=== PATIENT | female | born 1950 | race Caucasian/White ===

== ENCOUNTER 2021-10-11 22:23 | Inpatient (IN) ==
[2021-10-12] MEDS ORDERED: Naloxone 0.4 MG/ML INJ IVP PRN (04:48)
[2021-10-12] MEDS ORDERED: *HR* Heparin 5,000 UNIT/ML VIAL IVP PRN (05:18)
[2021-10-12 05:39] LABS: Hematocrit 37.3 % (35.3-44.9); Mean Corpuscular HGB Conc 29.5 g/dL (31.6-35.5); Mean Corpuscular Hemoglobin 25.5 pg (28.0-33.3); Mean Corpuscular Volume 86.5 fL (83.0-100.0); Red Blood Count 4.31 M/mcL (3.82-4.97); Red Cell Distribution Width 15.5 % (11.5-14.5); White Blood Count 5.1 K/mcL (4.3-11.1)
[2021-10-12] MEDS: Heparin 25,000UNIT/250ML 1/2NS 25,000 UNIT/250 ML IV.SOLN IVC SCH (05:39)
[2021-10-12 05:47] LABS: Heparin anti-factor XA UFH 0.18 IU/mL (0.30-0.70); INR 1.2; Prothrombin Time 13.5 Seconds (9.4-12.1)
[2021-10-12] MEDS: *HR* Heparin 5,000 UNIT/ML VIAL IVP PRN ×2 (06:09→13:57)
[2021-10-12 06:15] LABS: BUN/Creatinine Ratio 25 (6-26); Blood Urea Nitrogen 15 mg/dL (8-23); Calcium 8.7 mg/dL (8.6-10.3); Carbon Dioxide 22 mEq/L (23-29); Chloride 104 mEq/L (98-107); Glucose 105 mg/dL (70-105); Osmolality,Calculated 279 (280-300); Potassium 3.6 mEq/L (3.5-5.1); Sodium 134 mEq/L (136-145); Troponin I < 0.03 ng/mL (< 0.04); eGFR For African Americans > 60 (> 60); eGFR For Non-African Americans > 60 (> 60)
[2021-10-12] MEDS: Pantoprazole 40 MG VIAL IVP SCH ×2 (07:35→17:38)
[2021-10-12 16:33] LABS: Mean Platelet Volume 10.6 fL (9.4-12.4)
[2021-10-12 16:44] LABS: INR 1.2; Prothrombin Time 13.9 Seconds (9.4-12.1)
[2021-10-12 16:54] LABS: Albumin 3.6 g/dL (3.5-5.7); Albumin/Globulin Ratio 1.1 (1.1-2.2); Bilirubin,Direct 0.2 mg/dL (0.0-0.2); Bilirubin,Total 1.2 mg/dL (0.3-1.0); Globulin 3.3 g/dL (2.4-3.5); Total Protein 6.9 g/dL (6.4-8.9)
[2021-10-12 17:01] LABS: INR 1.3; Prothrombin Time 14.4 Seconds (9.4-12.1)
[2021-10-12] MEDS ORDERED: *HR* Warfarin 5 MG TABLET PO ONE (18:00)
[2021-10-12] MEDS ORDERED: Warfarin perPT PO PRN (18:00)
[2021-10-12 18:09] LABS: Folate 16.9 ng/mL (3.0-16.0)
[2021-10-12 18:10] LABS: Vitamin B12 155 pg/mL (250-1100)
[2021-10-12 19:16] LABS: Hepatitis B Surface Antigen Nonreactive (Nonreactive)
[2021-10-12 19:45] LABS: Hepatitis B Core IgM Nonreactive (Nonreactive); Hepatitis C Virus Antibody Nonreactive (Nonreactive)
[2021-10-12 19:47] LABS: Hepatitis A Antibody IgM Nonreactive (Nonreactive)
[2021-10-12] MEDS ORDERED: Iron Sucrose Complex 400 MG in 0.9 % Sodium Chloride 250 ML IVPB ONE (20:45)
[2021-10-12] MEDS ORDERED: Cyanocobalamin (B-12) 1,000 MCG/ML VIAL SQ SCH (20:45)
[2021-10-12] MEDS: Cyanocobalamin (B-12) 1,000 MCG TABLET PO SCH (21:35)
[2021-10-13] MEDS: Melatonin 3 MG TABLET PO PRN (01:15)
[2021-10-13] MEDS: Acetaminophen 325 MG TABLET PO PRN (01:15)
[2021-10-13] MEDS: Heparin 25,000UNIT/250ML 1/2NS 25,000 UNIT/250 ML IV.SOLN IVC SCH (01:56)
[2021-10-13] MEDS: Pantoprazole 40 MG VIAL IVP SCH (04:46)
[2021-10-13 05:16] LABS: Hematocrit 31.5 % (35.3-44.9); Hemoglobin 9.8 g/dL (11.5-15.4); Mean Corpuscular HGB Conc 31.1 g/dL (31.6-35.5); Mean Corpuscular Hemoglobin 25.4 pg (28.0-33.3); Mean Corpuscular Volume 81.6 fL (83.0-100.0); Mean Platelet Volume 10.6 fL (9.4-12.4); Platelet Count 242 K/mcL (140-400); Red Blood Count 3.86 M/mcL (3.82-4.97); Red Cell Distribution Width 15.4 % (11.5-14.5); White Blood Count 5.9 K/mcL (4.3-11.1)
[2021-10-13 05:22] LABS: INR 1.3; Prothrombin Time 14.1 Seconds (9.4-12.1)
[2021-10-13 05:36] LABS: Alanine Aminotransferase 3 Units/L (7-52); Albumin 3.1 g/dL (3.5-5.7); Albumin/Globulin Ratio 1.1 (1.1-2.2); Alkaline Phosphatase 56 Units/L (34-104); Aspartate Amino Transferase 9 Units/L (13-39); BUN/Creatinine Ratio 17 (6-26); Blood Urea Nitrogen 11 mg/dL (8-23); Calcium 8.5 mg/dL (8.6-10.3); Carbon Dioxide 23 mEq/L (23-29); Chloride 105 mEq/L (98-107); Globulin 2.7 g/dL (2.4-3.5); Glucose 112 mg/dL (70-105); Osmolality,Calculated 282 (280-300); Potassium 3.2 mEq/L (3.5-5.1); Sodium 136 mEq/L (136-145); Total Protein 5.8 g/dL (6.4-8.9); eGFR For African Americans > 60 (> 60); eGFR For Non-African Americans > 60 (> 60)
[2021-10-13 05:38] LABS: Estimated Average Glucose 126 mg/dl
[2021-10-13] MEDS: Cyanocobalamin (B-12) 1,000 MCG TABLET PO SCH (08:51)
[2021-10-13] MEDS: *HR* Enoxaparin 80 MG/0.8 ML SYRINGE SQ SCH ×2 (12:21→20:53)
[2021-10-13] MEDS: Cyanocobalamin (B-12) 1,000 MCG/ML VIAL SQ SCH (12:22)
[2021-10-13 12:36] LABS: Triiodothyronine (T3) Free 2.54 pg/mL (2.50-3.90)
[2021-10-13] MEDS ORDERED: *HR* Warfarin 2.5 MG TABLET PO ONE (18:00)
[2021-10-14 05:31] LABS: INR 1.6; Prothrombin Time 18.1 Seconds (9.4-12.1)
[2021-10-14 05:37] LABS: Hematocrit 30.1 % (35.3-44.9); Hemoglobin 9.6 g/dL (11.5-15.4); Mean Corpuscular HGB Conc 31.9 g/dL (31.6-35.5); Mean Corpuscular Hemoglobin 25.8 pg (28.0-33.3); Mean Corpuscular Volume 80.9 fL (83.0-100.0); Mean Platelet Volume 10.7 fL (9.4-12.4); Platelet Count 278 K/mcL (140-400); Red Blood Count 3.72 M/mcL (3.82-4.97); Red Cell Distribution Width 15.2 % (11.5-14.5); White Blood Count 5.3 K/mcL (4.3-11.1)
[2021-10-14 05:57] LABS: Alanine Aminotransferase 4 Units/L (7-52); Albumin 3.1 g/dL (3.5-5.7); Alkaline Phosphatase 55 Units/L (34-104); Aspartate Amino Transferase 8 Units/L (13-39); BUN/Creatinine Ratio 13 (6-26); Bilirubin,Total 0.7 mg/dL (0.3-1.0); Blood Urea Nitrogen 8 mg/dL (8-23); Calcium 8.7 mg/dL (8.6-10.3); Carbon Dioxide 21 mEq/L (23-29); Chloride 103 mEq/L (98-107); Glucose 97 mg/dL (70-105); Osmolality,Calculated 276 (280-300); Potassium 3.8 mEq/L (3.5-5.1); Sodium 134 mEq/L (136-145); Total Protein 6.1 g/dL (6.4-8.9); eGFR For African Americans > 60 (> 60); eGFR For Non-African Americans > 60 (> 60)
[2021-10-14] MEDS: Cyanocobalamin (B-12) 1,000 MCG/ML VIAL SQ SCH (09:02)
[2021-10-14] MEDS: *HR* Enoxaparin 80 MG/0.8 ML SYRINGE SQ SCH ×2 (09:03→20:31)
[2021-10-14] MEDS: Acetaminophen 325 MG TABLET PO PRN (15:31)
[2021-10-14] MEDS ORDERED: *HR* Warfarin 2.5 MG TABLET PO ONE (18:00)
[2021-10-15 05:19] LABS: INR 1.6; Prothrombin Time 18.2 Seconds (9.4-12.1)
[2021-10-15] MEDS: Acetaminophen 325 MG TABLET PO PRN (07:59)
[2021-10-15] MEDS: *HR* Enoxaparin 80 MG/0.8 ML SYRINGE SQ SCH ×2 (07:59→20:38)
[2021-10-15] MEDS: Cyanocobalamin (B-12) 1,000 MCG/ML VIAL SQ SCH (08:04)
[2021-10-15] MEDS: Sennosides/Docusate Sodium TABLET PO SCH ×2 (10:55→20:37)
[2021-10-15] MEDS ORDERED: *HR* Warfarin 4 MG TABLET PO ONE (18:00)
[2021-10-16 02:47] LABS: INR 1.8; Prothrombin Time 19.6 Seconds (9.4-12.1)
[2021-10-16] MEDS: Sennosides/Docusate Sodium TABLET PO SCH ×2 (10:13→21:35)
[2021-10-16] MEDS: Cyanocobalamin (B-12) 1,000 MCG/ML VIAL SQ SCH (10:14)
[2021-10-16] MEDS: *HR* Enoxaparin 80 MG/0.8 ML SYRINGE SQ SCH ×2 (10:14→21:35)
[2021-10-16] MEDS: Cyanocobalamin (B-12) 1,000 MCG TABLET PO SCH (10:15)
[2021-10-16] MEDS: Acetaminophen 325 MG TABLET PO PRN (14:42)
[2021-10-16] MEDS ORDERED: *HR* Warfarin 3 MG TABLET PO ONE (18:00)
[2021-10-16] MEDS: Melatonin 3 MG TABLET PO PRN (21:35)
[2021-10-17 03:13] LABS: INR 1.9; Prothrombin Time 21.1 Seconds (9.4-12.1)
[2021-10-17 08:15] LABS: HIV-1 Viral Load Interp NOT DETECTED (Not Detected)
[2021-10-17] MEDS: Sennosides/Docusate Sodium TABLET PO SCH ×2 (09:21→20:23)
[2021-10-17] MEDS: Cyanocobalamin (B-12) 1,000 MCG TABLET PO SCH (09:21)
[2021-10-17] MEDS: *HR* Enoxaparin 80 MG/0.8 ML SYRINGE SQ SCH ×2 (09:21→20:26)
[2021-10-17] MEDS: Cyanocobalamin (B-12) 1,000 MCG/ML VIAL SQ SCH (09:21)
[2021-10-17] MEDS: Gabapentin 100 MG CAPSULE PO SCH ×3 (15:27→20:25)
[2021-10-17] MEDS ORDERED: *HR* Warfarin 2.5 MG TABLET PO ONE (18:00)
[2021-10-17] MEDS: Acetaminophen 325 MG TABLET PO PRN (20:24)
[2021-10-17] MEDS ORDERED: Cyanocobalamin (B-12) 1,000 MCG TABLET PO SCH (20:45)
[2021-10-18 02:27] LABS: INR 2.1; Prothrombin Time 23.8 Seconds (9.4-12.1)
[2021-10-18] MEDS: Gabapentin 100 MG CAPSULE PO SCH ×2 (09:05→16:48)
[2021-10-18] MEDS: Sennosides/Docusate Sodium TABLET PO SCH (09:05)
[2021-10-18] MEDS: Cyanocobalamin (B-12) 1,000 MCG TABLET PO SCH (09:05)
[2021-10-18 11:20] VITALS: BP 97/56; PULSE 61; TEMP 97.9; O2SAT 93
[2021-10-18] MEDS ORDERED: *HR* Warfarin 2.5 MG TABLET PO ONE (18:00)
== END 2021-10-18 17:22 | DRG 301 ==
LOC: 2NENU → SUATTDRO 10-13 11:27
PROVIDERS: ADMIT Student in an Organized Health Care Education/Training Program; ATTEND Internal Medicine